=== PATIENT | male | born 1995 | race Asian ===

== ENCOUNTER 2017-02-10 17:16 | Emergency (ER) | payer OTHER ==
[2017-02-10 17:37] VITALS: RESP 16
--- NOTE | 2017-02-10 18:00 | EDPHY ---
H & P Time Seen by Provider: 02/10/17 17:53 HPI/ROS: CHIEF COMPLAINT: Left medial knee pain post skiing HISTORY OF PRESENT ILLNESS: 21-year-old male complaining of acute left medial knee pain after he was skiing at [facility], sustained a rotational injury to his left lower extremity and felt a pop to his left medial knee. He is unable to bear weight. No direct trauma or fall. No proximal distal pain or injury. Primary care provider: On License Of [facility] PHYSICAL EXAM (Prior to examination, patient consented to physical exam, hands were washed and my usual and customary physical exam procedures followed) 1) GENERAL: Well-developed, well-nourished, alert and oriented. Appears to be in no acute distress. 2) HEAD: Normocephalic 3) HEENT: Pupils equal, round, reactive to light bilaterally. 4) LUNGS: Breathing comfortably. 5) MUSCULOSKELETAL: Exam of the left knee shows tender to palpation medial knee is associated soft tissue swelling. Full flexion-extension albeit with pain at same location. No gross instability . Compartments are soft. 6) SKIN: 7) VASCULAR: DP,PT pulses and cap refill present and brisk distally DIFFERENTIAL DIAGNOSIS: in no particular order including but not limited to fracture, sprain, compartment syndrome, septic arthritis, DVT Xray of the left knee interpreted by myself: no definitive acute osseous abnormality Procedure: Crutches indications for crutch use discussed with patient. Patient fitted for crutches by ER staff. Observed ambulating with crutches. I think the patient has the capacity to safely use crutches. Usual and customary crutch walking precautions provided Procedure: Splint A knee immobilizer splint was applied by ER r&d lab technician. After application of the splint I returned and re-examined the patient. The splint was adequately immobilizing the joint and distal to the splint the patient's circulation and sensation were intact. Patient shows no signs of compartment syndrome. Was given orthopedic precautions. MEDICAL DECISION MAKING Serial evaluations performed on patient. I discussed the limitations of x-ray in diagnosis of knee pain and injury. At this time I do not think that emergent MRI is currently indicated. However, I have recommended follow-up with Orthopedic surgery and provided this referral information. Informed the patient that outpatient MRI may be indicated. Doubt septic arthritis. Doubt compartment syndrome. Doubt DVT. Smoking Status: Never smoked Constitutional: Initial Vital Signs Temperature (C) 36.9 C 02/10/17 17:25 Heart Rate 76 02/10/17 17:25 Respiratory Rate 16 02/10/17 17:25 Blood Pressure 102/64 02/10/17 17:25 O2 Sat (%) 95 02/10/17 17:25 O2 Delivery Mode Room Air Allergies/Adverse Reactions: No Known Allergies Allergy (Unverified 02/10/17 17:37) Home Medications: Medication Instructions Recorded Ibuprofen [Motrin (*)] 600 mg PO Q6 #10 tab 02/10/17 MDM/Departure - Depart Disposition: Home, Routine, Self-Care Clinical Impression: Strain of left knee Qualifiers: Encounter type: initial encounter Qualified Code(s): S86.912A - Strain of unspecified muscle(s) and tendon(s) at lower leg level, left leg, initial encounter Condition: Good Instructions: Knee Pain (ED) Additional Instructions: Return to the ER immediately if you experience discoloration, have worsening pain, numbness, tingling, or any other symptoms that concern you. If you received x-rays in the emergency department today, be advised, that ligamentous , tendon, muscular, and other non-bony injury cannot be fully ruled out. Try to keep your affected extremity elevated above the level of your chest, and keep cold packs on the affected area, for the next 48 hours. Prescriptions: Ibuprofen [Motrin (*)] 600 mg PO Q6 #10 tab Referrals: Stanislav Kirkpatrick MD [Medical Doctor] - 1-2 days without fail
[2017-02-10 18:48] VITALS: BP 126/82; PULSE 88; TEMP 98.2; O2SAT 96
== END 2017-02-10 18:46 | disposition home or self-care (01) ==
DX: S86.912A Strain of unspecified muscle(s) and tendon(s) at lower leg level, left leg, initial encounter (principal); X58.XXXA Exposure to other specified factors, initial encounter; Y99.8 Other external cause status; Y93.23 Activity, snow (alpine) (downhill) skiing, snowboarding, sledding, tobogganing and snow tubing
CPT/HCPCS: L1830